=== PATIENT | female | born 1985 | race Caucasian/White ===

== ENCOUNTER 2018-03-05 19:36 | Emergency (ER) | payer SELFPAY ==
[2018-03-05] MEDS ORDERED: CLINDAMYCIN 600 MG/D5W RTU 600 MG/50 ML RTUPB IV ONE (20:40)
[2018-03-05] MEDS ORDERED: ONDANSETRON 4 MG TAB.RAPDIS PO ONE (20:41)
[2018-03-05] MEDS ORDERED: OXYCODONE HCL IR 5 MG TABLET PO ONE (20:41)
--- NOTE | 2018-03-05 20:44 | ER Document Report ---
ED Medical Screen (RME) - General Chief Complaint: Facial Swelling Stated Complaint: FACIAL SWELLING Time Seen by Provider: 03/05/18 20:29 Notes: RAPID MEDICAL EVALUATION DISCLOSURE I have seen this patient as part of a Rapid Medical Evaluation and, if applicable, placed any initially appropriate orders. The patient will be seen and fully evaluated, including a full history and physical exam, by a provider ( in Main ED or Fast Track) when a room becomes available. 32-year-old female here with complaints of left facial swelling redness and pain that started near the corner of her mouth yesterday morning and has progressively spread upwards towards her eye and around her eye. She has also had several episodes of vomiting with nausea. She does not have any tooth pain. She has not had any drainage. Her vision is normal and does not hurt when she moves her eyes in all directions. She has no prior history of orbital cellulitis or tooth abscesses but does have a history of cavities. EXAM Left facial swelling (including periorbital), TTP, and carlos of tooth # 12 EOMI Mild trismus Widely patent airway No significant lymphadenopathy - Related Data Allergies/Adverse Reactions: No Known Allergies Allergy (Verified 03/05/18 20:31) Past Medical History - Social History Chew tobacco use (# tins/day): No Frequency of alcohol use: None Drug Abuse: None Renal/ Medical History: Denies: Hx Peritoneal Dialysis Physical Exam - Vital signs Vitals: Temp Pulse Resp BP Pulse Ox 98.8 F 82 16 116/64 100 03/05/18 20:26 03/05/18 20:26 03/05/18 20:26 03/05/18 20:26 03/05/18 20:26 Course - Vital Signs Vital signs: Temp Pulse Resp BP Pulse Ox 98.8 F 82 16 116/64 100 03/05/18 20:26 03/05/18 20:26 03/05/18 20:26 03/05/18 20:26 03/05/18 20:26
[2018-03-05 21:23] LABS: ABSOLUTE BASOPHILS # (AUTO) 0.1 10^3/uL (0.0-0.2); ABSOLUTE EOSINOPHILS # (AUTO) 0.3 10^3/uL (0.0-0.6); ABSOLUTE LYMPHOCYTES (AUTO) 3.2 10^3/uL (0.5-4.7); ABSOLUTE MONOCYTES (AUTO) 0.6 10^3/uL (0.1-1.4); ABSOLUTE NEUT (AUTO) 7.6 10^3/uL (1.7-8.2); BASOPHILS % (AUTO) 0.8 % (0-2); HEMATOCRIT 45.3 % (36.0-47.0); HEMOGLOBIN 15.3 g/dL (12.0-15.5); LYMPHOCYTES % (AUTO) 26.9 % (13-45); MEAN CORPUSCULAR HEMOGLOBIN 29.1 pg (27.0-33.4); MEAN CORPUSCULAR HGB CONC 33.8 g/dL (32.0-36.0); MEAN CORPUSCULAR VOLUME 86 fl (80-97); MONOCYTES % (AUTO) 5.2 % (3-13); PLATELET COUNT 205 10^3/uL (150-450); RED BLOOD COUNT 5.27 10^6/uL (3.72-5.28); RED CELL DISTRIBUTION WIDTH 13.1 % (11.5-14.0); SEGMENTED NEUTROPHILS % (AUTO) 64.1 % (42-78); TOTAL CELLS COUNTED % (AUTO) 100 %; WHITE BLOOD COUNT 11.8 10^3/uL (4.0-10.5)
[2018-03-05 21:39] LABS: ANION GAP 12 (5-19); BLOOD UREA NITROGEN 14 mg/dL (7-20); CALCIUM 9.3 mg/dL (8.4-10.2); CARBON DIOXIDE 26 mmol/L (22-30); CHLORIDE 108 mmol/L (98-107); GLUCOSE 96 mg/dL (75-110); SODIUM 145.6 mmol/L (137-145)
[2018-03-05] MEDS ORDERED: HYDROMORPHONE HCL INJ/PF 2 MG/ML AMPULE IV ONE (23:01)
--- NOTE | 2018-03-05 23:05 | ER Document Report ---
ED General - General Chief Complaint: Facial Swelling Stated Complaint: FACIAL SWELLING Time Seen by Provider: 03/05/18 20:29 - HPI Notes: Note patient was seen by the physician in triage ordered extensive laboratory evaluation as well as CT imaging of the face. 32-year-old female who presents with facial swelling and redness. Gradual onset over the last day and a half. Throbbing achy pain. Started in her left cheek and then extended up her left nasolabial fold and infraorbital region. She has some pain intraorally now but denies known dental abscess. No fever. No other modifying factors, no other associated symptoms, no other provocative or palliative factors. Nonradiating except as described - Related Data Allergies/Adverse Reactions: No Known Allergies Allergy (Verified 03/05/18 20:31) Past Medical History - Social History Smoking Status: Current Every Day Smoker Chew tobacco use (# tins/day): No Frequency of alcohol use: None Drug Abuse: None Family History: None Patient has suicidal ideation: No Patient has homicidal ideation: No - Medical History Medical History: Negative Renal/ Medical History: Denies: Hx Peritoneal Dialysis Review of Systems - Review of Systems Notes: Review of systems as in the history of present illness, otherwise negative. Physical Exam - Vital signs Vitals: Temp Pulse Resp BP Pulse Ox 98.8 F 82 16 116/64 100 03/05/18 20:26 03/05/18 20:26 03/05/18 20:26 03/05/18 20:26 03/05/18 20:26 - Notes Notes: General: Well developed . HEENT: Normocephalic, atraumatic. Pupils equal round reactive to light. No JVD. The external left face in the infraorbital region and malar eminence show fullness with slight induration and mild erythema Chest: No trauma. Respiratory: Good air exchange, normal excursion. Cardiac: Regular rhythm. No murmurs or gallops. Abdomen: Soft, benign. Nondistended. Nontender. Back: No asymmetry or gross abnormality. Motor: Grossly normal power and tone. Neurologic: Alert, nonfocal. Cranial nerves II-12 are intact. Sensation intact. Vascular: Well perfused. Normal peripheral pulses. Skin: No petechiae or purpura. Course - Re-evaluation Re-evalutation: 05/23/18 23:04 32-year-old female the after mentioned symptoms. The time of evaluation, CT is complete but not read. Intraoral examination shows no obvious drainable abscess. I strongly suspect some type of maxillary caries with secondary infection and facial cellulitis. Review of available labs show unremarkable CBC and chemistries. Patient's receiving IV analgesics, antiemetics, will be reassessed after CT results are posted. She has received IV clindamycin 03/05/18 23:39 Patient is done well, stable. CT imaging shows no drainable abscess. Will treat empirically for cellulitis, given a prescription for clindamycin, outpatient follow-up. - Vital Signs Vital signs: Temp Pulse Resp BP Pulse Ox 98.8 F 82 16 116/64 100 03/05/18 20:26 03/05/18 20:26 03/05/18 20:26 03/05/18 20:26 03/05/18 20:26 - Laboratory Result Diagrams: 03/05/18 21:05 03/05/18 21:05 Laboratory results interpreted by me: 03/05/18 03/05/18 21:05 21:05 WBC 11.8 H Sodium 145.6 H Chloride 108 H Discharge - Discharge Clinical Impression: Facial cellulitis Condition: Good Disposition: HOME, SELF-CARE Instructions: Cellulitis ([facility]) Prescriptions: Clindamycin HCl [Cleocin 300 mg Capsule] 300 mg PO Q6 #28 capsule
--- NOTE | 2018-03-05 23:28 | RADIOLOGY REPORT (SQ) ---
EXAM DESCRIPTION: CT MAXILLOFACIAL WITH IV CONTRAST CLINICAL HISTORY: 32 years Female, L facial/orbital swelling; eval orbital cellulitis Comparison: None. Technique: IV contrast. Coronal and sagittal reformat. This exam was performed according to our departmental dose-optimization program, which includes automated exposure control, adjustment of the mA and/or kV according to patient size and/or use of iterative reconstruction technique.[facility]: Dose Right [facility]: CareDose [facility]: Dose Right [facility]: Teradose 4D [facility]: [employer] LIMITATIONS: None. Findings: Moderate left infraorbital facial soft tissue swelling; no mass, no abscess, no drainable fluid collection. Facial bones including orbits, nasal bone, paranasal sinuses, and pterygoid plates appear otherwise intact. Unremarkable partially visualized inferior cranium, temporal bone, and upper neck. IMPRESSION: Moderate left infraorbital soft tissue swelling.
[2018-03-06] VITALS: BP 121/70
== END 2018-03-05 23:59 | disposition home or self-care (01) ==
LOC: ER 19:36
DX: L03.211 Cellulitis of face (principal); R22.0 Localized swelling, mass and lump, head; F17.200 Nicotine dependence, unspecified, uncomplicated
CPT/HCPCS: 99284; 96375; 96365; 36415; 87040; 85025; 80048; 70487; S0119; J1170

== ENCOUNTER 2019-01-14 17:17 | Emergency (ER) | payer SELFPAY ==
[2019-01-14 17:22] VITALS: BP 120/67
[2019-01-14] MEDS ORDERED: LIDOCAINE 1% INJ-PF (10 MG/ML) 30 ML SDV INJ ONE (17:35)
--- NOTE | 2019-01-14 17:40 | ER Document Report ---
ED Foreign Body - General Chief Complaint: Foreign Body Stated Complaint: FOREIGN OBJECT IN FINGER Time Seen by Provider: 01/14/19 17:35 Primary Care Provider: [facility] [Provider Group] - Follow up as needed Mode of Arrival: Ambulatory Information source: Patient Notes: 33-year-old female presents to ED for complaint of splinter into the right hand for the last 3-4 days. 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 She states the pain is increasing and is starting to swell. Patient is alert oriented respirations regular and unlabored speaking in full sentences. She states that she had her tetanus shot a year ago. TRAVEL OUTSIDE OF THE [place] IN LAST 30 DAYS: No - HPI Location of foreign body: Finger Onset: Other - Right index finger 3-4 days Onset/Duration: Gradual, Worse Quality of pain: Sharp, Throbbing Severity: Severe Pain Level: 5 Associated symptoms: Recent injury Exacerbated by: Movement Relieved by: Denies Similar symptoms previously: No Recently seen / treated by doctor: No - Related Data Allergies/Adverse Reactions: No Known Allergies Allergy (Verified 01/14/19 17:18) Past Medical History - General Information source: Patient - Social History Smoking Status: Current Every Day Smoker Cigarette use (# per day): Yes - Pack and a half a day Chew tobacco use (# tins/day): No Smoking Education Provided: Yes - 4 minutes Frequency of alcohol use: None Drug Abuse: None Lives with: Spouse/Significant other Family History: None Patient has suicidal ideation: No Patient has homicidal ideation: No - Past Medical History Cardiac Medical History: Reports: None Pulmonary Medical History: Reports: None EENT Medical History: Reports: None Neurological Medical History: Reports: None Endocrine Medical History: Reports: None Renal/ Medical History: Reports: None Malignancy Medical History: Reports: None GI Medical History: Reports: None Musculoskeletal Medical History: Reports None Skin Medical History: Reports None Psychiatric Medical History: Reports: None Traumatic Medical History: Reports: None Infectious Medical History: Reports: None Past Surgical History: Reports: Hx Section - Immunizations Immunizations up to date: Yes Hx Diphtheria, Pertussis, Tetanus Vaccination: Yes - 2017 Review of Systems - Review of Systems Constitutional: No symptoms reported EENT: No symptoms reported Cardiovascular: No symptoms reported Respiratory: No symptoms reported Gastrointestinal: No symptoms reported Genitourinary: No symptoms reported Female Genitourinary: No symptoms reported Musculoskeletal: No symptoms reported Skin: Other - Splinter in right index finger beside the fingernail Hematologic/Lymphatic: No symptoms reported Neurological/Psychological: No symptoms reported -: Yes All other systems reviewed and negative Physical Exam - Vital signs Vitals: Temp Pulse Resp BP Pulse Ox 97.6 F 92 20 120/67 96 01/14/19 17:21 01/14/19 17:21 01/14/19 17:21 01/14/19 17:21 01/14/19 17:21 Interpretation: Normal - General General appearance: Appears well, Alert - HEENT Head: Normocephalic, Atraumatic Eyes: Normal Pupils: PERRL - Respiratory Respiratory status: No respiratory distress Chest status: Nontender Breath sounds: Normal Chest palpation: Normal - Cardiovascular Rhythm: Regular Heart sounds: Normal auscultation Murmur: No - Abdominal Inspection: Normal Distension: No distension Bowel sounds: Normal Tenderness: Nontender Organomegaly: No organomegaly - Back Back: Normal, Nontender - Extremities General upper extremity: Normal inspection, Nontender, Normal color, Normal ROM, Normal temperature General lower extremity: Normal inspection, Nontender, Normal color, Normal ROM, Normal temperature, Normal weight bearing. No: Ebenezer's sign Hand: Tender, No evidence of human bite, Swelling, Other - Splinter beside the fingernail. No: No evidence of FB - Neurological Neuro grossly intact: Yes Cognition: Normal Orientation: AAOx4 [place] Coma Scale Eye Opening: Spontaneous Odilia Coma Scale Verbal: Oriented [place] Coma Scale Motor: Obeys Commands Odilia Coma Scale Total: 15 Speech: Normal Motor strength normal: LUE, RUE, LLE, RLE Sensory: Normal - Psychological Associated symptoms: Normal affect, Normal mood - Skin Skin Temperature: Warm Skin Moisture: Dry Skin Color: Normal Skin irregularity: other - Splinter Location of irregularity: Extremities - Splinter beside the fingernail of the right index finger Irregularity with: Swelling, Tenderness Course - Re-evaluation Re-evalutation: 01/14/19 20:48 Patient had a splinter in her right index finger for 3 days. 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 I consulted Dr. 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 He recommended clindamycin. Patient had the splinter removed the infection opened and she was started on clindamycin in the emergency room and discharged home with prescription for clindamycin. A Xeroform gauze then Telfa dressing applied and then finger gauze wrapped around the finger. Patient was instructed to leave this dressing intact for 24 hours and then change the dressing using the same material tomorrow and then start Epson salt soaks the next day and change the dressing 3 times a day. Patient was instructed to wear gloves at all time while working on the [employer] on this hand until this heals. Patient was discharged home with prescription for clindamycin. Patient to follow-up with primary doctor and/or hand surgeon within the next 3-5 days. - Vital Signs Vital signs: Temp Pulse Resp BP Pulse Ox 97.6 F 92 20 120/67 96 01/14/19 17:21 01/14/19 17:21 01/14/19 17:21 01/14/19 17:21 01/14/19 17:21 Procedures - Incision and Drainage Right Finger 2nd digit Time completed: 20:00 - Splinter in right index finger infected Type: Simple Anesthetic type: 1% Lidocaine mL's of anesthetic: 10 Blade size: 11 I&D procedure: Shurclens applied, Sterile dressing applied Incision Method: Incision made by scalpel Amount/type of drainage: Amount purulent drainage around the splinter, splinter also removed Discharge - Discharge Clinical Impression: slinter in right index finger infected Condition: Stable Disposition: HOME, SELF-CARE Instructions: Family Physicians / Practices Additional Instructions: You were seen today for an infected splinter in your right index finger. The infection has been incision and drained and the splinter has been removed. ABSCESS: Infected splinter You have an abscess (boil). This a pus-forming infection, usually due to staph. Some boils may be left to drain on their own, but most require lancing. From the time the tender lump first appears, it may be three or four days before the abscess is ready to mihir. Local heat and rest help at this stage of treatment. An antibiotic may prevent spread of the infection. Once the abscess is opened, packing may be placed into it. This is done so pus is not sealed inside by premature closure of the cavity. The packing will be removed at your follow-up visit or you may be advised to remove it yourself at home. Sometimes this packing must be replaced a few times during healing. The wound will heal with surprisingly little scar. Depending on the size and location of an abscess, healing can take one to four weeks. You may shower and wash the area around the incision site two or three ti mes a day. Antibiotics may be prescribed, but are usually not necessary after an abscess has been drained. If you develop fever, chills, worsening pain, or increasing swelling in the area, call the doctor or return immediately. POST INCISION AND DRAINAGE: You have had an incision made to allow drainage of an abscess. The incision must remain open so that pus and debris can drain from the wound. If the abscess cavity is large, packing is placed. This keeps the tissues from collapsing and trapping pus inside, while the body shrinks the cavity. The packing may need to be replaced every day or two. The physician will instruct you on the packing. Keep a bulky dressing over the area. Replace it if it becomes saturated with blood or pus. Do not disturb the packing (if present). You may shower and cleanse the area with gentle soap and warm water two or three times a day. Local warmth may be soothing, and may promote faster healing. Return if you develop high fever or chills, or if you note spreading redness, increasing swelling, or increasing tenderness. ORAL NARCOTIC MEDICATION: You have been given a prescription for pain control. This medication is a narcotic. It's best taken with food, as nausea can result if taken on an empty stomach. Don't operate machinery or drive within six hours of taking this medication. Do not combine this medicine with alcohol, or with any medication which can cause sedation (such as cold tablets or sleeping pills) unless you get permission from the physician. Narcotics tend to cause constipation. If possible, drink plenty of fluids and eat a diet high in fiber and fruits. Clindamycin You have been given a prescription for the antibiotic clindamycin. It is often prescribed for infections in the mouth, such as dental infections or abscesses, and for skin infections due to MRSA. It's important that you take all the medication, unless instructed otherwise by your physician. Failure to complete the entire course can result in relapse of your condition. Common side effects of antibiotics include nausea, intestinal cramping, or diarrhea. Women may develop vaginal yeast infections, and babies can get yeast (thrush) in the mouth following the use of antibiotics. Contact your physician if you develop significant side effects from this medication. Allergy to this antibiotic can result in hives, wheezing, faintness, or itching. If symptoms of allergy occur, stop the medication and call the doctor. Epsom Salt Soaks Soak the wound area in a container of warm epsom salt water. If you can't get the wound area into a bucket or flannery, use a folded towel soaked in the epsom salt solution and apply to the area. Use clean hot tap water (about the temperature of a very warm bath), mixing in about one (1) teaspoon for every pint of water. Two gallon --> 16 teaspoons Epsom Salts One gallon --> 8 teaspoons Epsom Salts Two quarts --> 4 teaspoons Epsom Salts One quart --> 2 teaspoons Epsom Salts Soak the wound for about 20 minutes while gently moving it around in the water. Repeat this four (4) times a day. Antibiotic Ointment Protection Your wounds are such that dressing them is not practical or optional. After cleansing, you should apply a thin coating of antibiotic ointment (Bacitracin, not Neosporin) to the wounds at least three times daily. This lessens infection risk, and may decrease the amount of scarring. Use a q-tip or dull butter knife, not your finger, to apply this ointment. Any debris or ooze which builds up in the ointment should be gently rubbed off with a sterile gauze pad. Harder crusting may need to be gently scrubbed off with a clean wash cloth with soap and warm water, perhaps applying a warm, wet wash cloth to the wound for ten minutes first. Development of redness, severe itching, or blistering may mean allergy to the ointment. See the doctor. FOLLOW-UP CARE: Most simple abscesses will not require a follow up visit. If you had packing placed in the abscess, remove it as instructed by the physician. If you have been referred to a physician for follow-up care, call the physicians office for an appointment as you were instructed or within the next two days. If you experience worsening or a significant change in your symptoms, return to the Emergency Department at any time for re-evaluation. Prescriptions: Hydrocodone/Acetaminophen [Batson 5-325 mg Tablet] 1 tab PO Q6HP PRN #7 tablet PRN Reason: Clindamycin HCl 300 mg PO Q6 #28 capsule Forms: Smoking Cessation Education, Return to Work Referrals: [facility] [Provider Group] - Follow up as needed
[2019-01-14] MEDS ORDERED: IBUPROFEN 800 MG TABLET PO ONE (18:23)
[2019-01-14] MEDS ORDERED: CLINDAMYCIN HCL 150 MG CAPSULE PO ONE (18:25)
== END 2019-01-14 18:36 | disposition home or self-care (01) ==
LOC: ER 17:17
DX: S60.450A Superficial foreign body of right index finger, initial encounter (principal); L08.9 Local infection of the skin and subcutaneous tissue, unspecified; W45.8XXA Other foreign body or object entering through skin, initial encounter; F17.210 Nicotine dependence, cigarettes, uncomplicated; Z71.6 Tobacco abuse counseling
CPT/HCPCS: 99283; 10060; J3490

== ENCOUNTER 2019-08-31 09:15 | Emergency (ER) | payer SELFPAY ==
[2019-08-31] MEDS ORDERED: HYDROCODONE/ACETAMINOPHEN 5-325 MG TABLET PO ONE (09:46)
[2019-08-31] MEDS ORDERED: IBUPROFEN 600 MG TABLET PO ONE (09:46)
--- NOTE | 2019-08-31 09:47 | ER Document Report ---
HPI - HPI Time Seen by Provider: 08/31/19 09:34 Pain Level: 5 Context: Patient is a 33-year-old female who presents to the emergency department with a chief complaint of left rib pain. Patient states that she walked into a chair on evening and she states that the pain has gotten progressively worse. She has been taking Goody's powders, Biofreeze, and Tylenol to help with the pain, but has had little relief. Patient had a heating pack to the area and the re was a small amount of heat rash to the area. Patient states that it happens when she applies heat to her skin. - ROS Systems Reviewed and Negative: Yes All other systems reviewed and negative - CONSTITUTIONAL Constitutional: DENIES: Fever, Chills - CARDIOVASCULAR Cardiovascular: REPORTS: Chest pain - Left lateral chest wall - RESPIRATORY Respiratory: DENIES: Trouble Breathing, Coughing - GASTROINTESTINAL Gastrointestinal: DENIES: Abdominal Pain, Nausea, Patient vomiting - REPRODUCTIVE Reproductive: DENIES: : - MUSCULOSKELETAL Musculoskeletal: DENIES: Extremity pain - DERM Skin Color: Normal Skin Problems: Rash - Heat rash where her heating pack was Past Medical History - Social History Smoking Status: Current Every Day Smoker Frequency of alcohol use: Occasional Drug Abuse: None Family History: None Patient has suicidal ideation: No Patient has homicidal ideation: No Renal/ Medical History: Denies: Hx Peritoneal Dialysis Past Surgical History: Reports: Hx Section - Immunizations Immunizations up to date: Yes Hx Diphtheria, Pertussis, Tetanus Vaccination: Yes - 2018 [facility] Provider Document - CONSTITUTIONAL Agree With Documented VS: Yes Exam Limitations: No Limitations General Appearance: No Apparent Distress - INFECTION CONTROL TRAVEL OUTSIDE OF THE [place] IN LAST 30 DAYS: No - HEENT HEENT: Atraumatic, Normocephalic, PERRLA - NECK Neck: Normal Inspection - RESPIRATORY Respiratory: Breath Sounds Normal, No Respiratory Distress. negative: Chest Non-Tender - Tender left lateral chest at lower ribs - CARDIOVASCULAR Cardiovascular: Regular Rate, Regular Rhythm, No Murmur Pulses: Normal: Radial - MUSCULOSKELETAL/EXTREMETIES Musculoskeletal/Extremeties: FROM, Tender - Left lateral lower ribs - NEURO Level of Consciousness: Awake, Alert, Appropriate Motor/Sensory: No Motor Deficit, No Sensory Deficit - DERM Integumentary: Warm, Dry, Rash - Patient and heating pack to the area. Patient states that she sometimes gets heat rash. Course - Re-evaluation Re-evalutation: 09/01/19 08:40 Patient states that she feels somewhat better after receiving a dose of Harper here in the emergency department. I instructed the patient on making sure she takes good deep breaths in. I also instructed her on smoking cessation. X-rays are negative for any acute fractures. I suspect the patient has a contusion. A very low suspicion for a pneumothorax, pneumonia, or any life-threatening etiology at this time. Patient will follow-up with a primary care provider. Follow-up precautions were given. Verbal discharge instructions were given to the patient. They verbalized understanding. They are stable for discharge. - Vital Signs Vital signs: Temp Pulse Resp BP Pulse Ox 97.6 F 67 18 119/86 H 100 08/31/19 09:20 08/31/19 09:20 08/31/19 09:20 08/31/19 09:20 08/31/19 09:20 Discharge - Discharge Clinical Impression: Contusion of rib on left side Qualifiers: Encounter type: initial encounter Qualified Code(s): S20.212A - Contusion of left front wall of thorax, initial encounter Condition: Stable Disposition: HOME, SELF-CARE Additional Instructions: You were seen today in the emergency department for left rib pain. Your x-ray is normal. You have a contusion to the area. Please stop taking the Goody's powders and take ibuprofen 600 mg every 6 hours and acetaminophen 650 mg every 6 hours. Although it may hurt, continue to take nice good deep breaths in to prevent pneumonia. You are being sent home with Harper, medication for pain. Please make sure that you take these only for breakthrough pain, as you only have a certain amount. Follow-up with 1 of the clinics below. Forms: Return to Work Referrals: [facility] [Provider Group] - Follow up as needed [facility] [Provider Group] - Follow up as needed
--- NOTE | 2019-08-31 10:39 | RADIOLOGY REPORT (SQ) ---
EXAM DESCRIPTION: RIBS LEFT W/PA CHEST COMPLETED DATE/TIME: 08/31/2019 10:13 am REASON FOR STUDY: rib pain/ran into chair COMPARISON: None. TECHNIQUE: Frontal view of the chest and additional views of the left ribs acquired. NUMBER OF VIEWS: PA chest, left rib detail three views LIMITATIONS: None. FINDINGS: FRONTAL CXR: No pneumothorax. No pleural effusion. No atelectasis or infiltrates. Cardi ac silhouette size, evan unremarkable. RIBS: No displaced rib fractures. No lytic or blastic bony lesions. OTHER: No other significant finding. IMPRESSION: NO PNEUMOTHORAX. NO DISPLACED RIB FRACTURES. COMMENT: SITE OF TRAUMA/COMPLAINT MARKED/STAMP COMPLETED: YES. TECHNICAL DOCUMENTATION: JOB ID: [id number] [employer]- All Rights Reserved Reading location - IP/workstation name: [email or web address]
[2019-08-31] MEDS ORDERED: HYDROCODONE/ACETAMINOPHEN 5-325 MG (6 TAB/ER DISP) PO PRN (10:57)
[2019-08-31 11:17] VITALS: BP 105/66
== END 2019-08-31 11:15 | disposition home or self-care (01) ==
LOC: ER 09:15
DX: S20.212A Contusion of left front wall of thorax, initial encounter (principal); R07.81 Pleurodynia; X58.XXXA Exposure to other specified factors, initial encounter; L74.0 Miliaria rubra; F17.200 Nicotine dependence, unspecified, uncomplicated
CPT/HCPCS: 99283